=== PATIENT | female | born 1965 | race Caucasian/White ===

== ENCOUNTER 2017-10-27 18:28 | Emergency (ER) | payer MEDICAID, SELFPAY ==
[2017-10-27 18:29] VITALS: BP 159/104; PULSE 86; RESP 16; TEMP 36.9; O2SAT 98; BMI 22.2
[2017-10-27 19:02] LABS: Color, Urine Yellow (Yellow); Glucose, Dipstick Normal (Normal); Ketone-Dipstick 15 mg/dl (Negative); Leukocyte Esterase-Dipstick 500 /ul (Negative); Nitrite-Dipstick Negative (Negative); Occult Blood-Urine 50 /ul (Negative); Protein-Dipstick 15 mg/dl (Negative); Urine Clarity Sl. Cloudy (Clear); Urine Urobilinogen 1 mg/dl (Normal)
[2017-10-27 19:07] LABS: Urine Bilirubin Dipstick 1 mg/dL (Negative)
[2017-10-27 19:09] LABS: Bacteria 1+ /hpf (None Seen); Mucous, Urine 3+ /hpf (<or=2+); Red Blood Cells-Urine 0-5 SEEN /hpf (0-5); Squamous Epithelial Cells - UA 0-5 SEEN /hpf (5-10)
[2017-10-27 19:10] LABS: White Blood Cells 5-10 SEEN /hpf (0-5)
[2017-10-27] MEDS: Phenazopyridine 95 MG Tablet 190 MG PO (19:16)
--- NOTE | 2017-10-27 20:00 | ED.DCSUM_ITS ---
- ER Visit Summary Date of Service: 10/27/17 Chief Complaint: Bladder infection History of Present Illness: The patient is a 52 F with no primary care physician. She reports she has dysuria and frequency that began 2 days ago. She denies any fever, nausea, vomiting, or back pain. Physical Examination: Vitals: Stable. Afebrile. General: Well-nourished and well-developed. Head: Normocephalic atraumatic. Neck: Supple, no lymphadenopathy. No JVD. Nontender. Cardiovascular: Regular rate and rhythm. No murmurs. Respiratory: No respiratory distress. Clear to auscultation bilaterally. Abdominal: Soft, nontender, nondistended, normal bowel sounds. No guarding, rebound, or peritoneal signs. Back: Nontender. Extremities: Nontender, no edema. Skin: Normal color, no rash. Neurologic: Alert and oriented ?3. Cranial nerves II through XII are intact. Normal strength and sensation. Psych: Normal affect. Test Results: UA shows a UTI. Emergency Department Course and Treatment: Patient was treated with Macrobid and Pyridium p.o. Treatment Plan: Patient will be discharged on Macrobid and Pyridium. Instructed to follow-up with Dr. Padilla in 1 week for another exam. Return to the emergency department for any worsening symptoms. Disposition: To home in improved and stable condition. Impression: 1. UTI. This note was generated with [employer] dictation software. It may contain incorrect words, spelling, and punctuation that were not noted in review of the chart prior to signing ED Disposition - Plan for ED Patient: Disposition: Home or Assisted Living Chief Complaint: Complaint Instructions: ED UTI Cystitis Female Prescriptions: Nitrofurantoin Macrocrystals [Macrobid] 100 mg PO Q12 #14 capsule Phenazopyridine HCl [Pyridium] 200 mg PO BID PRN PRN #10 tablet PRN Reason: Pain Referrals: Elvira Padilla DO [STAFF PHYSICIAN] - 1 Week if not improving
[2017-10-27] MEDS: Nitrofurantoin Macrocrystals 100 MG Capsule PO (20:14)
[2017-10-27 20:15] VITALS: RESP 18
== END 2017-10-27 20:15 | disposition home or self-care (01) ==
LOC: ED 19:35
PROVIDERS: Emergency Provider Emergency Medicine
DX: N39.0 Urinary tract infection, site not specified (principal); F17.210 Nicotine dependence, cigarettes, uncomplicated
CPT/HCPCS: 81001; 99283

== ENCOUNTER 2017-11-09 18:20 | Emergency (ER) | payer SELFPAY ==
[2017-11-09 18:21] VITALS: BP 166/109; PULSE 104; RESP 16; TEMP 36.8; O2SAT 96; BMI 22.2
--- NOTE | 2017-11-09 19:33 | ED.DCSUM_ITS ---
- ER Visit Summary Date of Service: 11/09/17 Chief Complaint: Sore throat History of Present Illness: The patient is a 52 F presenting with sore throat which started yesterday. Patient has painful swallowing but no difficulty swallowing. She has had no drooling. She has a history of previous strep pharyngitis and states this feels similar. She has no sick contacts. She also states for the past week she has had cramping in her right lower extremity. She states that this comes and goes. She denies fever. She has rhinorrhea. Denies other complaints. Physical Examination: Vitals are stable. Blood pressure 166/109. patient is afebrile. Alert no acute distress. HEENT exam pharyngeal erythema with no exudate. Uvula is midline. Neck is supple. Lungs are clear and equal bilaterally. Heart is regular rate and rhythm. Abdomen is soft nontender nondistended. Extremities right lower extremity no erythema or warmth. Active full range of motion. Normal distal pulse. Skin is warm and dry. No focal neurologic deficit. Remainder of exam is unremarkable. Emergency Department Course and Treatment: Rapid strep is negative. She is given Decadron p.o. Chemistries are unremarkable other than BUN 19, creatinine 0.52. She is resting comfortably in the ED on reevaluation. She is given a prescription for lisinopril as she ran out of this 1 month ago. She is given Dr. Paige humanities division chair for no doc for follow-up. Advised return to ED if worsening complaints. Disposition: Discharge home Impression: Pharyngitis, hypertension This note was generated with [employer] dictation software. It may contain incorrect words, spelling, and punctuation that were not noted in review of the chart prior to signing ED Disposition - Plan for ED Patient: Chief Complaint: Sore Throat Referrals: Care Physician,No Primary [Primary Care Provider] -
[2017-11-09 19:56] LABS: Anion Gap 6 (5-15); BUN 19 mg/dL (7-18); BUN/Creat Ratio 36.8 RATIO (10-20); Calcium,Total 8.9 mg/dL (8.5-10.1); Chloride 109 mmol/L (98-107); Creatinine, Serum 0.52 mg/dL (0.55-1.02); EST Glomerular Filtration Rate 133 mL/min (>60); Est Glom Filt Rate - Afr Amer 161 mL/min (>60); Estimated Creatinine Clearance 124.47 ml/min; Glucose 88 mg/dL (74-106); Potassium 3.8 mmol/L (3.5-5.1); Sodium Level 141 mmol/L (136-145)
--- NOTE | 2017-11-09 20:34 | ED.DEP ---
ED Disposition - Plan for ED Patient: Chief Complaint: Sore Throat Instructions: ED Pharyngitis Viral, What Is High Blood Pressure? Prescriptions: Lisinopril 20 mg PO DAILY #30 tablet Referrals: Care Physician,No Primary [Primary Care Provider] - Doe Paige MD [STAFF PHYSICIAN] -
== END 2017-11-09 20:41 | disposition home or self-care (01) ==
LOC: ED 19:35
PROVIDERS: Emergency Provider Emergency Medicine
DX: J02.9 Acute pharyngitis, unspecified (principal); I10 Essential (primary) hypertension; K21.9 Gastro-esophageal reflux disease without esophagitis; Z72.0 Tobacco use
CPT/HCPCS: 80048; 87880; 99283